=== PATIENT | female | born 1935 | race Caucasian/White ===

== ENCOUNTER 2021-10-30 14:13 | Outpatient (CLI) | payer MEDICARE, SELFPAY ==
[2021-10-30 14:45] LABS: Basophils Percent Auto 0.4 % (0.2-1.2); Eosinophils Percent Auto 0.6 % (0-4.4); Hematocrit 30.3 % (37.0-47.0); Hemoglobin 9.4 g/dL (12.0-15.0); Immature Granulocyte Absolute 0.01 K/mm3 (0.00-0.031); Immature Granulocyte Percent A 0.2 % (0-0.5); Immature Reticulocyte Fraction 4.7 % (3.0-15.9); Lymphocytes Absolute Auto 1.54 K/mm3 (0.9-3.2); Lymphocytes Percent Auto 30.6 % (18.3-44.2); Mean Corpuscular Hemoglobin 31.1 pg (26-34); Mean Corpuscular Volume 100.3 fl (80-100); Mean Platelet Volume 11.1 fl (7.4-10.4); Monocytes Absolute Auto 0.4 K/mm3 (0.1-0.6); Monocytes Percent Auto 7.3 % (2.6-8.5); Neutrophils Absolute Auto 3.1 K/mm3 (1.3-6.7); Neutrophils Percent Auto 60.9 % (45.5-73.1); Platelet Count Result 140 k/mm3 (150-375); Red Blood Count 3.02 M/mm3 (4.2-5.4); Red Cell Distribution Width 13.2 % (11.5-14.5); Reticulocyte Hemoglobin Conten 33.9 pg (28.2-35.7); Reticulocyte Percent 1.01 % (0.7-4.3); Reticulocytes Absolute 0.03 B/L (32.2-175.7)
[2021-10-30 16:03] LABS: Iron 80 ug/dL (37-170)
[2021-10-30 16:06] LABS: Alanine Aminotransferase 22 U/L (6-35); Albumin Level 4.9 g/dL (3.5-5.1); Alkaline Phosphatase 84 U/L (38-126); Anion Gap 10 mmol/L (8-16); Aspartate Amino Transferase 32 U/L (14-36); Bilirubin,Total 0.4 mg/dL (0.2-1.3); Blood Urea Nitrogen 31 mg/dL (7-17); Calcium 9.1 mg/dL (8.4-10.2); Carbon Dioxide 24 mmol/L (22-30); Chloride 104 mmol/L (98-107); Estimated Glomerular Filt Rate 53; Glucose 99 mg/dL (65-110); Lactate Dehydrogenase 649 U/L (313-618); Potassium 4.3 mmol/L (3.4-5.0); Sodium 138 mmol/L (137-145)
[2021-10-30 16:13] LABS: Percent Iron Saturation 24 % (20-50)
== END 2021-10-30 14:14 | disposition home or self-care (01) ==
PROVIDERS: PCP Family Medicine; Visit Provider Internal Medicine Hematology & Oncology
DX: D64.9 Anemia, unspecified (principal)
CPT/HCPCS: 36415; 80053; 82607; 82728; 82746; 83540; 83550; 83615; 85025; 85046

== ENCOUNTER 2023-06-18 14:17 | Outpatient (CLI) | payer MEDICARE, MEDICAID, SELFPAY ==
[2023-06-18 16:37] LABS: Anion Gap 11 mmol/L (8-16); Blood Urea Nitrogen 27 mg/dL (7-17); Calcium 8.9 mg/dL (8.4-10.2); Carbon Dioxide 26 mmol/L (22-30); Chloride 96 mmol/L (98-107); Estimated Glomerular Filt Rate 47; Glucose 106 mg/dL (65-110); Potassium 3.6 mmol/L (3.4-5.0); Sodium 133 mmol/L (137-145)
== END 2023-06-18 14:18 | disposition home or self-care (01) ==
LOC: ANHLAB 14:20
PROVIDERS: Physician Assistant; PCP Family Medicine; Visit Provider Family Medicine
DX: E87.6 Hypokalemia (principal)
CPT/HCPCS: 36415; 80048; 85025; 96372; Q5106

== ENCOUNTER 2023-07-06 15:42 | Inpatient (IN) | payer MEDICARE, MEDICAID, SELFPAY ==
[2023-07-06] VITALS (15 sets, daily range): BP systolic 105–137; BP diastolic 61–76; PULSE 67–111; RESP 14–24; TEMP 36.4–36.8; O2SAT 95–100; BMI 21.4
--- NOTE | ~2023-07-06 | CT_ITS ---
EXAMINATION: CT brain wo con DATE: 07/06/2023 17:49 INDICATION: Confusion. TECHNIQUE: Computed tomography (CT) of the head was performed without intravenous contrast. The mA wa s adjusted according to patient size. Iterative reconstruction technique was employed. The dose-lengt h product was 529.67 mGy-cm. COMPARISON: None FINDINGS: There is an old infarct involving the right basal ganglia. There are scattered areas of low attenuation in the cerebral white matter. There is no intracranial hemorrhage, acute infarction, or abnormal intracranial mass lesion. The ventricles are normal in size. There are likely changes of ocu lar lens replacement surgeries. There is mild mucosal thickening in the paranasal sinuses. The mastoi d air cells are normal. IMPRESSION: 1. 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 2. Moderate nonspecific cerebral white matter disease, which likely represents chronic small vessel i schemic disease. Reviewed, dictated and finalized at location E. R CANE GROWER IMPRESSION: 1. 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 2. Moderate nonspecific cerebral white matter disease, which likely represents chronic small vessel ischemic disease.
--- NOTE | ~2023-07-06 | US_ITS ---
EXAMINATION: US abdomen complete DATE: 07/08/2023 10:54 INDICATION: Pancytopenia. TECHNIQUE: Multiple grayscale and Doppler ultrasound images of the abdomen were obtained. COMPARISON: None FINDINGS: The visualized portions of the head and body of the pancreas are normal. The liver is lyly l without focal lesion. There is normal flow in main portal vein. The gallbladder is absent. The comm on duct is normal and measures 6 mm. Abdominal aorta is normal in caliber. Inferior vena cava is norm al. The spleen is normal in size. Right kidney measures 8.5 x 3.9 x 4.6 cm. Left kidney measures 9.3 x 5.2 x 4.4 cm. There is a 1.4 cm cyst in left kidney. IMPRESSION: 1. Mild atrophy of right kidney. Reviewed, dictated and finalized at location E. FIELD PERSON
--- NOTE | ~2023-07-06 | CT_ITS ---
EXAMINATION: CT lumbar spine wo con DATE: 07/06/2023 17:49 INDICATION: Low back pain. Radiculopathy, worse on the right. TECHNIQUE: Computed tomography (CT) of the lumbar spine was performed without intravenous contrast. A utomated exposure control and iterative reconstruction technique were employed. The dose-length produ ct was 501.63 mGy-cm. COMPARISON: None FINDINGS: There is a small right pleural effusion. Cardiomegaly is noted. There is calcified atherosc lerosis of the aorta and many of the other arteries. There are changes of cholecystectomy. There is a 2.1 cm cyst in right kidney. There is 14 degrees levoscoliosis of lumbar spine. There is 3 mm magaly listhesis of L4 on L5. There is a chronic compression fracture of L3 with 2/5 loss of height. There a re chronic burst fractures of L4 and L5 with 2/5 loss of height. There is mildly decreased disc heigh t at L2-L3, moderately decreased disc height at L3-L4, severely decreased disc height at L3-L4, moder ately decreased disc height at L4-L5, and severely decreased disc height at L5-S1. There are bridging endplate osteophytes from T8 to T11 and at L1-L2, consistent with diffuse idiopathic skeletal hypero stosis (DISH). The following disc levels are specifically discussed: L1-L2: The disc is bulging. There is mild bilateral facet joint osteoarthritis. There is mild right n eural foraminal stenosis. There is mild central canal stenosis. L2-L3: The disc is bulging. There is moderate bilateral facet joint osteoarthritis. There is moderate right and mild left neural foraminal stenosis. There is mild central canal stenosis. L3-L4: The disc is bulging. There is severe bilateral facet joint osteoarthritis. There is moderate b ilateral neural foraminal stenosis. There is mild central canal stenosis. L4-L5: The disc is bulging. There is severe bilateral facet joint osteoarthritis. There is moderate r ight and mild left neural foraminal stenosis. There is moderate central canal stenosis. L5-S1: The disc is bulging. There is mild right and severe left facet joint osteoarthritis. There is mild right and moderate left neural foraminal stenosis. There is mild central canal stenosis. IMPRESSION: 1. Severe lumbar spondylosis. 2. Lumbar levoscoliosis. 3. Small right pleural effusion. Reviewed, dictated and finalized at location E. [employer]
--- NOTE | ~2023-07-06 | XR_ITS ---
EXAMINATION: XR chest 1V DATE: 07/06/2023 17:57 INDICATION: Pneumonia. TECHNIQUE: A single frontal view of the chest was obtained. COMPARISON: Lumbar spine CT 07/06/2023 FINDINGS: There is a small right pleural effusion. A calcified right lung nodule and calcified right hilar lymph nodes are consistent with old granulomatous disease. There is an interstitial pattern in the lungs, consistent mild pulmonary edema. No pneumothorax. Cardiomegaly is noted. Surgical clips in the right upper quadrant are likely from cholecystectomy. IMPRESSION: 1. Mild pulmonary edema. 2. Small right pleural effusion. 3. Cardiomegaly. Reviewed, dictated and finalized at location E. E AWAY DRIVER
--- NOTE | ~2023-07-06 | XR_ITS ---
EXAMINATION: XR hip BI 2V w AP pelvis DATE: 07/06/2023 19:16 INDICATION: Hip pain. TECHNIQUE: An anteroposterior view of the pelvis and 2 views of each hip were obtained. COMPARISON: Pelvis and hip radiograph 12/02/2013 FINDINGS: There is lumbar levoscoliosis and severe spondylosis. No fracture. There is mild osteoarthr itis of the hips. A surgical clips overlies the pelvis. IMPRESSION: 1. Mild osteoarthritis of the hips. Reviewed, dictated and finalized at location E. ACCOUNT MANAGER
--- NOTE | 2023-07-06 17:07 | ED.GENADULT ---
HPI - General Adult General Chief complaint: Back Pain/Injury <Vincent Garcia PA-C - Last Filed: 07/06/23 17:24> Stated complaint: back pain <Vincent Garcia PA-C - Last Filed: 07/06/23 17:24> Time Seen by Provider: 07/06/23 17:07 <Vincent Garcia PA-C - Last Filed: 07/06/23 17:24> Focused HPI: This is an 88-year-old female who presents to the ED with her daughter and chief complaint of low back pain increasing over the last couple of weeks. Seems to be radiating into the bilateral lower extremities. Daughter states that she feels like she cannot take care of her anymore, patient has had a couple of episodes of increased confusion and is being worked up for dementia. Reports patient has been coughing as well. Denies fevers, chills, nausea, vomiting, abdominal pain, chest pain or shortness of breath. GENERAL: Well-appearing, well-nourished, and in no acute distress. HEAD: Normocephalic, atraumatic. CHEST: Clear to auscultation. No respiratory distress. HEART: Regular rate and rhythm. NEURO: Alert and oriented x3. Patient screened in triage and initial orders placed. Additional care and disposition to be based upon diagnostic testing and treatment. <Vincent Garcia PA-C - Last Filed: 07/06/23 17:24> Source: patient and family <Vincent Garcia PA-C - Last Filed: 07/06/23 17:24> Mode of arrival: wheelchair <Vincent Garcia PA-C - Last Filed: 07/06/23 17:24> Limitations: no limitations <Vincent Garcia PA-C - Last Filed: 07/06/23 17:24> History of Present Illness HPI narrative: 88-year-old female present to the emergency department for evaluation of altered mental status, low back pain. Family states that the patient has chronic back pain but it has acutely worsened. They denied any fall or injury. Family states the patient currently lives in her own apartment but they are attempting to get the patient placed into [facility]. <Andrea John MD - Last Filed: 07/06/23 22:02> Related Data Allergies/adverse reactions: Allergies Allergy/AdvReac Type Severity Reaction Status Date / Time No Known Allergies Allergy Mild Verified 07/06/23 17:10 <Vincent Garcia PA-C - Last Filed: 07/06/23 17:24> Review of Systems Review of Systems: All systems reviewed & are unremarkable except as noted in HPI and below <Andrea John MD - Last Filed: 07/06/23 22:02> [facility] Past Medical History Medical History: Medical History Benign essential HTN Gallbladder & bile duct stone, acute cholecystitis and obstruction Hyperlipidemia <Vincent Garcia PA-C - Last Filed: 07/06/23 17:24> Surgical History Surgical History: Surgical History H/O total hysterectomy S/P cholecystectomy <Vincent Garcia PA-C - Last Filed: 07/06/23 17:24> Social History Social History: Social History Social History: Smoking status: Never smoker Second hand tobacco smoke exposure: No Alcohol intake: never Substance use: never Substance use type: does not use Lack of Transportation: No Lack of Food: Never True Current Housing: I Have Housing Concerned About Future Housing: No Difficulty Paying Gas/Electric Bills: No Difficulty Paying for Meds: No Currently Unemployed: YES Education: Decline to Answer Difficulty w/ Childcare or Family Care: No Living arrangements: alone Occupation/Education: retired Gender identity (if verbalized by the patient): Female Sexual Orientation (if Verbalized by the Patient): Straight or Heterosexual <Vincent Garcia PA-C - Last Filed: 07/06/23 17:24> Exam Narrative: APPEARANCE: ill-appearing HEAD: normocephalic, atraumatic. EYES: PERRLA/EOMI, conjunctivae clear. NOSE: Normal no drainage EARS:TMS clear with good light reflex. THROAT: Ph
[2023-07-06 17:48] LABS: Basophils Percent Auto 0.5 % (0.2-1.2); Eosinophils Percent Auto 0.5 % (0-4.4); Hematocrit 30.1 % (37.0-47.0); Hemoglobin 9.6 g/dL (12.0-15.0); Immature Granulocyte Absolute 0.01 K/mm3 (0.00-0.031); Immature Granulocyte Percent A 0.5 % (0-0.5); Immature Platelet Fraction Pct 7.4 % (0.9-11.2); Lymphocytes Percent Auto 18.2 % (18.3-44.2); Mean Corpuscular HGB Conc 31.9 g/dl (32-36); Mean Corpuscular Hemoglobin 32.4 pg (26-34); Mean Corpuscular Volume 101.7 fl (80-100); Mean Platelet Volume 12.5 fl (7.4-10.4); Monocytes Absolute Auto 0.2 K/mm3 (0.1-0.6); Monocytes Percent Auto 10.9 % (2.6-8.5); Neutrophils Absolute Auto 1.5 K/mm3 (1.3-6.7); Neutrophils Percent Auto 69.4 % (45.5-73.1); Platelet Count Result 60 k/mm3 (150-375); Red Blood Count 2.96 M/mm3 (4.2-5.4); White Blood Count 2.2 K/mm3 (4.5-10.0)
[2023-07-06 17:57] LABS: Alanine Aminotransferase 31 U/L (6-35); Albumin Level 3.4 g/dL (3.5-5.1); Alkaline Phosphatase 122 U/L (38-126); Anion Gap 8 mmol/L (8-16); Aspartate Amino Transferase 61 U/L (14-36); Bilirubin,Total 0.8 mg/dL (0.2-1.3); Blood Urea Nitrogen 25 mg/dL (7-17); Calcium 7.9 mg/dL (8.4-10.2); Carbon Dioxide 22 mmol/L (22-30); Chloride 95 mmol/L (98-107); Estimated CRCL calculation 31 ml/min; Estimated Glomerular Filt Rate > 60; Glucose 122 mg/dL (65-110); Potassium 3.6 mmol/L (3.4-5.0); Sodium 125 mmol/L (137-145)
[2023-07-06 18:23] LABS: Influenza A QL RT-PCR Negative (Negative); Influenza B QL RT-PCR Negative (Negative); RSV RNA, RT-PCR Negative (Negative); SARS-CoV-2 RNA PCR Positive (Negative)
[2023-07-06 18:45] LABS: Platelet Estimate Adequate (Adequate)
[2023-07-06 18:46] LABS: Anisocytosis 1+ (NORMAL); Burr Cells 1+ (NORMAL); Ovalocytes 2+ (NORMAL)
[2023-07-06 18:47] LABS: Schistocytes None Seen (NORMAL)
[2023-07-06 19:18] LABS: Appearance Urine Cloudy (Clear); Bacteria Urine 4+ /hpf; Bilirubin Urine Negative (Negative); Blood Urine 1+ (Negative); Color Urine Yellow (Yellow); Glucose Urine UA Negative (Negative); Ketones Urine Negative (Negative); Leukocyte Esterase Ur 2+ LEU/UL (Negative); Nitrate Urine Negative (Negative); Protein Urine 2+ mg/dL (Negative); RBC Urine 0-2 /hpf (0-2); Specific Grav Ur 1.015 (1.001-1.035); Squamous Epithelial Cell Urine None seen /hpf (Few); Urobilinogen Urine 0.2 mg/dL (<2.0); WBC Urine >100 /hpf
[2023-07-06 19:56] LABS: Add Urine Microscopic? YES
--- NOTE | 2023-07-06 20:40 | PM.IMHP ---
H&P: HPI History of Present Illness Date/Time: 07/06/23 20:40 Chief Complaint: Altered mental status Narrative: This is an 88-year-old female with past medical history significant for dementia, atrial fibrillation rate controlled and anticoagulated. Patient to has had altered mental status with behavioral disturbance changes in her sleep pattern, poor per orally intake. Daughter brought her for evaluation to the emergency room. Patient is unable to give any history which has been obtained from daughter who is at bedside and emergency room physician. Preliminary workup was significant for patient tested positive for COVID and urinalysis was significant for numerous WBCs present EXAMINATION: CT brain wo con DATE: 07/06/2023 17:49 INDICATION: Confusion. TECHNIQUE: Computed tomography (CT) of the head was performed without intravenous contrast. The mA was adjusted according to patient size. Iterative reconstruction technique was employed. The dose-length product was 529.67 mGy-cm. COMPARISON: None FINDINGS: There is an old infarct involving the right basal ganglia. There are scattered areas of low attenuation in the cerebral white matter. There is no intracranial hemorrhage, acute infarction, or abnormal intracranial mass lesion. The ventricles are normal in size. There are likely changes of ocular lens replacement surgeries. There is mild mucosal thickening in the paranasal sinuses. The mastoid air cells are normal. IMPRESSION: 1. 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 2. Moderate nonspecific cerebral white matter disease, which likely represents chronic small vessel ischemic disease. EXAMINATION: CT lumbar spine wo con DATE: 07/06/2023 17:49 INDICATION: Low back pain. Radiculopathy, worse on the right. TECHNIQUE: Computed tomography (CT) of the lumbar spine was performed without intravenous contrast. Automated exposure control and iterative reconstruction technique were employed. The dose-length product was 501.63 mGy-cm. COMPARISON: None FINDINGS: There is a small right pleural effusion. Cardiomegaly is noted. There is calcified atherosclerosis of the aorta and many of the other arteries. There are changes of cholecystectomy. There is a 2.1 cm cyst in right kidney. There is 14 degrees levoscoliosis of lumbar spine. There is 3 mm anterolisthesis of L4 on L5. There is a chronic compression fracture of L3 with 2/5 loss of height. There are chronic burst fractures of L4 and L5 with 2/5 loss of height. There is mildly decreased disc height at L2-L3, moderately decreased disc height at L3-L4, severely decreased disc height at L3-L4, moderately decreased disc height at L4-L5, and severely decreased disc height at L5-S1. There are bridging endplate osteophytes from T8 to T11 and at L1-L2, consistent with diffuse idiopathic skeletal hyperostosis (DISH). The following disc levels are specifically discussed: L1-L2: The disc is bulging. There is mild bilateral facet joint osteoarthritis. There is mild right neural foraminal stenosis. There is mild central canal stenosis. L2-L3: The disc is bulging. There is moderate bilateral facet joint osteoarthritis. There is moderate right and mild left neural foraminal stenosis. There is mild central canal stenosis. L3-L4: The disc is bulging. There is severe bilateral facet joint osteoarthritis. There is moderate bilateral neural foraminal stenosis. There is mild central canal stenosis. L4-L5: The disc is bulging. There is severe bilateral facet joint osteoarthritis. There is moderate right and mild left neural foraminal stenosis. There is moderate central canal stenosis. L5-S1: The disc is bulging. There is mild right and severe left facet joint osteoarthritis. There is mild right and moderate left neural foraminal stenosis. There is mild central canal stenosis. IMPRESSION: 1. Severe lumbar spondylosis. 2. Lumbar levoscoliosis. 3. Small right pleural effusion. EXAMINATION: XR chest 1V
--- NOTE | 2023-07-06 22:18 | ADMGEN ---
This patient, Filomena Sams, was admitted to Medical Room 343-01. Patient/family oriented to hospital policies and general routines including ID bracelet, bed and alarms, visiting hours, pain management, procedures, bathroom and other care routines, personal items, smoking policy, room service/diet, and visiting hours. Information on how to activate the Rapid Response Team has been discussed. Patient/Family are encouraged to report perceived risks to care and to ask questions if they do not understand what they are told or what they should do.
[2023-07-07 04:28] VITALS: BP 114/52; PULSE 89; RESP 15; TEMP 37.1; O2SAT 97
[2023-07-07 06:43] LABS: Basophils Percent Auto 0.5 % (0.2-1.2); Hematocrit 30.9 % (37.0-47.0); Lymphocytes Absolute Auto 0.71 K/mm3 (0.9-3.2); Lymphocytes Percent Auto 35.9 % (18.3-44.2); Mean Corpuscular HGB Conc 32.4 g/dl (32-36); Mean Corpuscular Hemoglobin 32.4 pg (26-34); Monocytes Absolute Auto 0.3 K/mm3 (0.1-0.6); Monocytes Percent Auto 13.6 % (2.6-8.5); Platelet Count Result 61 k/mm3 (150-375); Red Blood Count 3.09 M/mm3 (4.2-5.4); Red Cell Distribution Width 18.6 % (11.5-14.5)
[2023-07-07 06:50] LABS: Anion Gap 6 mmol/L (8-16); Blood Urea Nitrogen 22 mg/dL (7-17); Calcium 7.7 mg/dL (8.4-10.2); Carbon Dioxide 25 mmol/L (22-30); Chloride 96 mmol/L (98-107); Estimated CRCL calculation 31 ml/min; Estimated Glomerular Filt Rate > 60; Glucose 84 mg/dL (65-110); Potassium 3.3 mmol/L (3.4-5.0); Sodium 127 mmol/L (137-145)
[2023-07-07] MEDS: POTASSIUM CHLORIDE 20 MEQ PACKET (FOR LIQUID) 40 MEQ PO (08:43)
[2023-07-07] MEDS: SERTRALINE HCL 25 MG TABLET PO (08:44)
[2023-07-07] MEDS: APIXABAN 2.5 MG TABLET PO ×2 (08:44→21:05)
[2023-07-07] MEDS: ATORVASTATIN 20 MG TABLET PO (08:44)
[2023-07-07] MEDS: dilTIAZem HCL CD 120 MG CAP.24HR PO (08:44)
[2023-07-07] MEDS: FERROUS SULFATE 325 MG TABLET DR PO (08:44)
[2023-07-07] MEDS: ACETAMINOPHEN 500 MG TABLET 1000 MG PO ×2 (08:44→21:05)
[2023-07-07 08:51] LABS: Platelet Estimate Decreased (Adequate); Schistocytes Rare (NORMAL)
--- NOTE | 2023-07-07 13:10 | PM.IMPN ---
Progress Note: A&P Assessment and Plan (1) AMS (altered mental status): Code(s): R41.82 - Altered mental status, unspecified Status: Acute Assessment and Plan: CT of the head no acute intracranial process Supportive care Likely due to acute infection (2) Acute UTI: Code(s): N39.0 - Urinary tract infection, site not specified Status: Acute Assessment and Plan: urine suspicious for UTI. Rocephin initiated. Urine culture pending. Adjust antibiotic therapy to culture results. (3) COVID: Code(s): U07.1 - COVID-19 Status: Acute Assessment and Plan: Supportive care Not requiring oxygen supplementation at this time. (4) Aortic stenosis: Code(s): I35.0 - Nonrheumatic aortic (valve) stenosis Status: Acute Assessment and Plan: Patient is on diltiazem Continue to monitor (5) Mitral stenosis: Code(s): I05.0 - Rheumatic mitral stenosis Status: Acute Assessment and Plan: Continue to monitor (6) JR (generalized anxiety disorder): Code(s): F41.1 - Generalized anxiety disorder Status: Acute Assessment and Plan: Continue sertraline (7) CKD (chronic kidney disease) stage 3, GFR 30-59 ml/min: Code(s): N18.30 - Chronic kidney disease, stage 3 unspecified Status: Acute Assessment and Plan: BUN and creatinine at patient's baseline (8) Hyponatremia: Code(s): E87.1 - Hypo-osmolality and hyponatremia Status: Acute Assessment and Plan: Multifactorial as patient is on diuretics at home noted chloride to be low as well Received fluids in emergency room Continue to monitor Subjective Date/time seen: 07/07/23 13:10 Interval history: Patient states that she is feeling well today. She denies any cough, shortness of breath or chest pain. She is incontinent but denies any urinary burning or irritation. Her urine cultures are pending. Once urine cultures come back the plan is to hopefully discharge patient to SNF. Exam Narrative: GENERAL: Comfortable, no acute distress HENMT: moist mucous membranes EYES: EOM intact b/l NECK: no lymphadenopathy RESPIRATORY: clear to auscultation CARDIO: RRR GI: soft, nontender, bowel sounds present SKIN: no rashes EXTREMITIES: no edema, redness or tenderness Objective Data Vital Signs Vital Signs: Vital Signs - 24 hr 01/16/24 15:56 07/06/23 17:09 07/06/23 21:57 Temperature 97.5 F L Pulse Rate 111 H 67 86 Respiratory Rate 20 18 20 Blood Pressure 105/72 137/62 106/76 Pulse Oximetry 99 99 96 Oxygen Delivery Room Air 07/06/23 20:04 07/06/23 20:05 07/06/23 20:15 Temperature Pulse Rate 96 94 86 Respiratory Rate 19 23 H 17 Blood Pressure 136/73 122/74 Pulse Oximetry 100 97 98 Oxygen Delivery 07/06/23 20:16 07/06/23 20:34 07/06/23 20:45 Temperature Pulse Rate 90 96 94 Respiratory Rate 16 23 H 19 Blood Pressure Pulse Oximetry 98 100 100 Oxygen Delivery 07/06/23 20:46 07/06/23 21:14 07/06/23 21:15 Temperature Pulse Rate 85 91 78 Respiratory Rate 18 14 17 Blood Pressure 110/74 Pulse Oximetry 100 Oxygen Delivery 07/06/23 21:41 07/06/23 21:45 07/06/23 22:20 Temperature 98.2 F Pulse Rate 87 88 81 Respiratory Rate 24 H 18 18 Blood Pressure 116/61 Pulse Oximetry 95 Oxygen Delivery 07/07/23 04:28 07/07/23 08:50 Temperature 98.8 F Pulse Rate 89 Respiratory Rate 15 Blood Pressure 114/52 L Pulse Oximetry 97 Oxygen Delivery Room Air Intake/Output Intake/Output: Intake & Output 07/04/23 07/05/23 07/06/23 07/07/23 23:59 23:59 23:59 23:59 Intake Total 50 540 Output Total 250 250 Balance -200 290 Meds/Results Medications: Active Medications Generic Name Dose Route Start Last Admin Trade Name Chanceq PRN Reason Stop Dose Admin Acetaminophen 1,000 mg 07/07/23 09:00 07/07/23 08:44 Acetaminophen 500 Mg Tablet
[2023-07-07 16:00] VITALS: BP 114/66; PULSE 70; RESP 16; TEMP 36.2; O2SAT 100
[2023-07-07 19:40] VITALS: BP 91/62; PULSE 66; RESP 18; TEMP 36.6; O2SAT 98
[2023-07-08 05:52] VITALS: BP 97/49; PULSE 83; RESP 16; TEMP 36.6; O2SAT 96
[2023-07-08 06:14] LABS: Hematocrit 30.8 % (37.0-47.0); Hemoglobin 9.6 g/dL (12.0-15.0); Immature Platelet Fraction Pct 7.6 % (0.9-11.2); Mean Corpuscular HGB Conc 31.2 g/dl (32-36); Mean Corpuscular Hemoglobin 31.2 pg (26-34); Mean Platelet Volume 12.8 fl (7.4-10.4); Platelet Count Result 66 k/mm3 (150-375); Red Blood Count 3.08 M/mm3 (4.2-5.4); Red Cell Distribution Width 18.7 % (11.5-14.5)
[2023-07-08 06:24] LABS: Alanine Aminotransferase 26 U/L (6-35); Albumin Level 3.1 g/dL (3.5-5.1); Alkaline Phosphatase 117 U/L (38-126); Anion Gap 6 mmol/L (8-16); Aspartate Amino Transferase 61 U/L (14-36); Bilirubin,Total 0.6 mg/dL (0.2-1.3); Blood Urea Nitrogen 22 mg/dL (7-17); Calcium 7.8 mg/dL (8.4-10.2); Carbon Dioxide 23 mmol/L (22-30); Chloride 98 mmol/L (98-107); Estimated CRCL calculation 28 ml/min; Estimated Glomerular Filt Rate 59; Glucose 90 mg/dL (65-110); Potassium 3.8 mmol/L (3.4-5.0); Sodium 127 mmol/L (137-145)
[2023-07-08 06:42] LABS: White Blood Count 1.8 K/mm3 (4.5-10.0)
[2023-07-08 08:12] LABS: Basophils Percent Auto 0.5 % (0.2-1.2); Eosinophils Percent Auto 0.5 % (0-4.4); Hematocrit 30.4 % (37.0-47.0); Hemoglobin 9.7 g/dL (12.0-15.0); Immature Granulocyte Absolute 0.02 K/mm3 (0.00-0.031); Immature Granulocyte Percent A 1.1 % (0-0.5); Immature Platelet Fraction Pct 7.9 % (0.9-11.2); Lymphocytes Absolute Auto 0.93 K/mm3 (0.9-3.2); Mean Corpuscular HGB Conc 31.9 g/dl (32-36); Mean Corpuscular Hemoglobin 31.9 pg (26-34); Mean Platelet Volume 12.1 fl (7.4-10.4); Monocytes Absolute Auto 0.2 K/mm3 (0.1-0.6); Monocytes Percent Auto 12.9 % (2.6-8.5); Neutrophils Absolute Auto 0.7 K/mm3 (1.3-6.7); Nucleated Red Blood Cells Perc 1.1 % (0.0-0.2); Platelet Count Result 66 k/mm3 (150-375); Red Blood Count 3.04 M/mm3 (4.2-5.4); Red Cell Distribution Width 18.8 % (11.5-14.5)
[2023-07-08] MEDS: dilTIAZem HCL CD 120 MG CAP.24HR PO (08:27)
[2023-07-08] MEDS: APIXABAN 2.5 MG TABLET PO (08:27)
[2023-07-08] MEDS: ATORVASTATIN 20 MG TABLET PO (08:27)
[2023-07-08] MEDS: FERROUS SULFATE 325 MG TABLET DR PO (08:27)
[2023-07-08] MEDS: ACETAMINOPHEN 500 MG TABLET 1000 MG PO (08:27)
[2023-07-08] MEDS: SERTRALINE HCL 25 MG TABLET PO (08:28)
[2023-07-08 08:41] LABS: White Blood Count 1.9 K/mm3 (4.5-10.0)
[2023-07-08] MEDS: SODIUM CHLORIDE 0.9% IV 500 ML 100 ML IV CONT (08:41)
[2023-07-08 08:42] LABS: Anisocytosis 1+ (NORMAL); Platelet Estimate Decreased (Adequate); Poikilocytosis 1+ (NORMAL)
[2023-07-08 08:43] LABS: Ovalocytes 1+ (NORMAL); Schistocytes Rare (NORMAL)
[2023-07-08 08:59] LABS: Iron 85 ug/dL (37-170)
[2023-07-08 09:08] LABS: Percent Iron Saturation 30 % (20-50)
[2023-07-08] MEDS: SODIUM CHLORIDE 1 GM TABLET PO (09:57)
[2023-07-08 10:25] LABS: Folic Acid 5.5 ng/mL (2.76->20); Vitamin B12 > 1000.0 pg/mL (239-931)
--- NOTE | 2023-07-08 11:56 | PDONCCN ---
HPI - Date of Consult Date/Time: 07/08/23 18:21 <Jesus Alberto Garcia - 07/08/23 18:24> 07/08/23 11:56 <Heidi Ramos - 07/08/23 12:00> Requesting Physician: Mone Horvath MD <Jesus Alberto Garcia - 07/08/23 18:24> Mone Horvath MD <Heidi Ramos - 07/08/23 12:00> Primary Care Provider: Bernie Eli MD <Jesus Alberto Garcia - 07/08/23 18:24> Bernie Eli MD <Heidi Ramos - 07/08/23 12:00> - Consult Narrative Reason for consult: Panctyopenia <Heidi Ramos - 07/08/23 12:00> Narrative: Filomena Sams is a 88 year old female <Jesus Alberto Garcia - 07/08/23 18:24> Filomena Sams is a 88 year old female with a past medical history of dementia, Afib controlled, and HLD. She was brought to the ED for worsening AMS and was found to be COVID + and have a urinalysis suspicious for a UTI. Filomena has been seen in our office for anemia of chronic renal failure and has been receiving monthly Procrit injections. She also has a B12 deficiency and is on oral supplementation. She was last seen in office 05/21/23 and labs were stable with a Hgb of 10.6, WBC 4.1, Plt 110, Creatinine 1.2. Upon exam, patient is unable to give much information and history due to her dementia. She is able to tell me that she is in the hospital and the month is June. <Heidi Ramos - 07/08/23 12:00> Review of Systems - Review of Systems unobtainable due to mental status <Heidi Ramos - 07/08/23 12:01> [facility] Medical History: Medical History (Last Reviewed 06/18/23 @ 13:20 by Traci Gayle MA) Benign essential HTN Gallbladder & bile duct stone, acute cholecystitis and obstruction Hyperlipidemia <Jesus Alberto Garcia - 07/08/23 18:24> Medical History (Last Reviewed 06/18/23 @ 13:20 by Traci Gayle MA) Benign essential HTN Gallbladder & bile duct stone, acute cholecystitis and obstruction Hyperlipidemia <Moises Ramosne - 07/08/23 12:00> Surgical History: Surgical History (Last Reviewed 06/18/23 @ 13:20 by Traci Gayle MA) H/O total hysterectomy S/P cholecystectomy <JoseJesus AlbertoVijaya - 07/08/23 18:24> Surgical History (Last Reviewed 06/18/23 @ 13:20 by Traci Gayle MA) H/O total hysterectomy S/P cholecystectomy <RandolphHeidi greenfield 07/08/23 12:00> Family History: Family History (Last Updated 07/06/23 @ 22:32 by Erin Mas RN) Sibling Lung cancer Breast cancer Emphysema lung <JoseJesus AlbertoVijaya - 07/08/23 18:24> Family History (Last Updated 07/06/23 @ 22:32 by Erin Mas RN) Sibling Lung cancer Breast cancer Emphysema lung <Randolphjean pierreHeidi 07/08/23 12:00> - Social History Social History: Social History (Last Reviewed 06/18/23 @ 13:20 by Traci Gayle MA) Gender Identity: Gender identity (if verbalized by the patient): Female Sexual Orientation: Sexual Orientation (if Verbalized by the Patient): Straight or Heterosexual Alcohol Use: Alcohol intake: never Substance Use: Substance use: never Substance use type: does not use Others: Spiritual care concerns: No Living Arrangements: Living arrangements: alone Oppucation/Education: Occupation/Education: retired Smoking Status: Smoking status: Never smoker Second hand tobacco smoke exposure: No Social Determinants of Health: Do You Feel Safe in your Home?: Yes Has the Lack of Transportation Kept You From Medical Appointments or From Getting Medications?: No Within the Past 12 Months, Were You Worried Whether Your Food Would Run Out Before You Got Money to Buy More?: Never True What is Your Housing Situation Today?: I Have Housing Are You Worried That in the Next 2 Months, You May Not Have Your Own Housing to Live In?: No Do You Have Trouble Paying Your Heating Or Elect
--- NOTE | 2023-07-08 12:26 | PM.DS ---
DS: Admitting Diagnosis Discharge Date 07/08/23 Admitting Diagnosis UTI, COVID DS: Discharge Diagnosis Discharge Diagnosis (1) AMS (altered mental status): Code(s): R41.82 - Altered mental status, unspecified Status: Acute (2) Acute UTI: Code(s): N39.0 - Urinary tract infection, site not specified Status: Acute (3) COVID: Code(s): U07.1 - COVID-19 Status: Acute (4) Aortic stenosis: Code(s): I35.0 - Nonrheumatic aortic (valve) stenosis Status: Acute (5) Mitral stenosis: Code(s): I05.0 - Rheumatic mitral stenosis Status: Acute (6) JR (generalized anxiety disorder): Code(s): F41.1 - Generalized anxiety disorder Status: Acute (7) CKD (chronic kidney disease) stage 3, GFR 30-59 ml/min: Code(s): N18.30 - Chronic kidney disease, stage 3 unspecified Status: Acute (8) Hyponatremia: Code(s): E87.1 - Hypo-osmolality and hyponatremia Status: Acute DS: Summary Hospital Course Hospital Course: This is an 88-year-old female with a past medical history of dementia, AFib rate controlled, anemia and hyperlipidemia that presented to the ED due to her mental status and Poor oral intake. She was found to be COVID positive but did not require any increased oxygen demands. Her urine was suspicious for infection. She was started on Rocephin. Patient's urine culture came back positive for E coli sensitive to Augmentin. She was transitioned to p.o. Augmentin. She does have some pancytopenia but sees Oncology as an outpatient. Recommended she continue her follow-up appointment. Her labs and vital signs are stable and she is medically cleared for discharge at this time. Time Spent with Patient Time attestation: Total time spent providing and/or coordinating discharge services: Exam Narrative: GENERAL: Comfortable, no acute distress HENMT: moist mucous membranes EYES: EOM intact b/l NECK: no lymphadenopathy RESPIRATORY: clear to auscultation CARDIO: RRR GI: soft, nontender, bowel sounds present SKIN: no rashes EXTREMITIES: no edema, redness or tenderness DS: Data Data Completed and Pending Pending studies at discharge: Pending at discharge 07/08/23 11:54 Surgical [PTH] Routine Labs on day of discharge: Labs from last 24 hours 07/08/23 07/08/23 07/08/23 05:47 05:47 05:47 WBC RBC Hgb Hct MCV MCH MCHC RDW Plt Count 66 L MPV 12.1 H 12.8 H Immature Gran % (Auto) 1.1 H Neut % (Auto) 35.0 L Lymph % (Auto) 50.0 H [place] % (Auto) 12.9 H Eos % (Auto) 0.5 Baso % (Auto) 0.5 Lymph # (Auto) 0.93 [place] # (Auto) 0.2 Eos # (Auto) 0.0 Baso # (Auto) 0.0 Abs Immat Gran (auto) 0.02 Absolute Neuts (auto) 0.7 L Absolute Nucleated RBC 0.0 Nucleated RBC % 1.1 H Platelet Estimate Decreased % Immature Plt Fraction 7.9 7.6 Poikilocytosis 1+ Anisocytosis 1+ Ovalocytes 1+ Schistocytes Rare Sodium 127 L Potassium 3.8 Chloride 98 Carbon Dioxide 23 Anion Gap 6 L BUN 22 H Creatinine 0.90 Estim Creat Clear Calc 28 Estimated GFR 59 Glucose 90 Calcium 7.8 L Iron 85 TIBC 283 % Saturation 30 Helene Transferrin Receptr Pending Ferritin 357.00 H Total Bilirubin 0.6 AST 61 H ALT 26 Alkaline Phosphatase 117 Total Protein 6.0 L Albumin 3.1 L Vitamin B12 > 1000.0 H Methylmalonic Acid Pending Folate 5.5 EMAON Screen Pending 07/08/23 07/08/23 07/08/23 05:47 05:47 05:47 WBC RBC Hgb Hct MCV MCH 31.9 MCHC 31.9 L 31.2 L RDW 18.8 H 18.7 H Plt Count 66 L MPV Immature Gran % (Auto) Neut % (Auto) Lymph % (Auto) [place] % (Auto) Eos % (Auto) Baso % (Auto) Lymph # (Auto) [place] # (Auto) Eos # (Auto) Baso # (Auto) Abs Immat Gran (auto) Absolute Neuts (auto) Absolute Nucleated RBC Nuclea
--- NOTE | 2023-07-08 13:02 | P.CDI_ITS ---
CDI Query Clarification Request Documentation in the medical record indicates that this patient has been diagnosed as having the symptom of ALTERED MENTAL STATUS. Additional findings also documented in the medical record: * Infection : UTI * Hyponatremia * COVID-19 * Urine Culture 07/06/23 grew > 100,000 Escherichia coli * Patient received Rocephin 1 GM Q 24hrs changed to Augmentin PO Q 12hrs Based on your medical judgement , can you further clarify in the progress notes, if know, if these findings associated with altered mental status are due to a definite or suspected underlying neurological cause such as: * Metabolic Encephalopathy * Toxic Encephalopathy * Altered Mental status without encephalopathy * Other condition (Please specify) * None of the above/ Not applicable/ Unknown <Codie Diana RN - Last Filed: 07/08/23 13:15> Clarified Diagnosis Clarified Diagnosis: Metabolic encephalopathy <Clarissa Rock PA-C - Last Filed: 07/08/23 14:16>
[2023-07-12 11:35] LABS: Methylmalonic Acid 163 nmol/L (87-318)
[2023-07-13 13:59] LABS: Anti Nuclear Antibody Titer 1:40 (Negative)
[2023-07-17 11:56] LABS: Soluble Transferrin Receptor 1.19 mg/L (0.76-1.76)
== END 2023-07-08 14:20 | DRG 689 ==
LOC: ANHED 18:03 → ANH3MED 21:40
PROVIDERS: Internal Medicine Critical Care Medicine; Nurse Practitioner Family; Physician Assistant; Admitting Provider Internal Medicine; Emergency Provider Emergency Medicine; PCP Family Medicine; Visit Provider Internal Medicine
DX: N39.0 Urinary tract infection, site not specified (principal); G93.41 Metabolic encephalopathy; U07.1 COVID-19; E87.1 Hypo-osmolality and hyponatremia; D61.818 Other pancytopenia; B96.20 Unspecified Escherichia coli [E. coli] as the cause of diseases classified elsewhere; D63.1 Anemia in chronic kidney disease; E53.8 Deficiency of other specified B group vitamins; E78.5 Hyperlipidemia, unspecified; F41.1 Generalized anxiety disorder; F03.90 Unspecified dementia, unspecified severity, without behavioral disturbance, psychotic disturbance, mood disturbance, and anxiety; I06.0 Rheumatic aortic stenosis; I12.9 Hypertensive chronic kidney disease with stage 1 through stage 4 chronic kidney disease, or unspecified chronic kidney disease; I48.91 Unspecified atrial fibrillation; N18.30 Chronic kidney disease, stage 3 unspecified; Z90.710 Acquired absence of both cervix and uterus; Z90.49 Acquired absence of other specified parts of digestive tract; Z79.01 Long term (current) use of anticoagulants
CPT/HCPCS: 36415; 70450; 71045; 72131; 73521; 76700; 80048; 80053; 81001; 82607; 82728; 82746; 83540; 83550; 83921; 84238; 85025; 85027; 85055; 86038; 86039; 87077; 87086; 87088; 87186; 87637; 96365; 97161; 97165; 99285; A9270; G0378; J0696; J7040

== ENCOUNTER 2023-08-07 11:48 | Observation (INO) | payer MEDICARE, MEDICAID, SELFPAY ==
[2023-08-07] VITALS (20 sets, daily range): BP systolic 95–143; BP diastolic 58–96; PULSE 60–147; RESP 18–32; TEMP 36.3–36.6; O2SAT 94–98; BMI 20.1
--- NOTE | ~2023-08-07 | CT_ITS ---
EXAMINATION: CTA chest PE protocol DATE: 08/07/2023 15:18 INDICATION: covid, tachycardia, concern PE TECHNIQUE: Computed tomography angiography (CTA) of the chest was performed with 100 mL Omnipaque-350 intravenous contrast timed to evaluate the pulmonary arteries. Coronal maximum intensity projection 3D-reconstructions were created by the technologist. The dose-length product (DLP) was 263.99 mGy-cm. Automated exposure control and iterative reconstruction technique were employed. COMPARISON: X-ray chest, same date. FINDINGS: Lung parenchyma and airways: Septal thickening. Patchy groundglass opacities most notably in the bila teral upper lobes. Minimal dependent atelectasis. Calcified right middle lobe granuloma/hamartoma. Pleura: Moderate right and small left pleural fluid collections. Thoracic inlet, axillae and chest wall: Considerable venous reflux in the left upper extremity and ch est. Severe body wall edema. Thoracic aorta: Heavy aortic calcification. No aneurysm. Mediastinum: Dilated central pulmonary arteries, as can be seen with pulmonary arterial hypertension. Heart and pericardium: Marked cardiomegaly with pronounced biatrial enlargement. Lesser degree of rig ht ventricular enlargement. Septal flattening. Mitral annulus calcification. Coronary artery calcifications: Moderate. Upper abdomen: Considerable IVC and hepatic vein reflux. Bones: No acute osseous finding. Pulmonary arteries: Study quality: Adequate. No pulmonary emboli detected. IMPRESSION: No CT evidence of acute pulmonary embolus. Pulmonary edema. Moderate right and small left pleural effusions. Marked cardiomegaly, with additional signs that can be seen with right heart failure. Severe body wall edema. Reviewed, dictated and finalized at location K. O LAB MANAGER IMPRESSION: No CT evidence of acute pulmonary embolus. Pulmonary edema. Moderate right and small left pleural effusions. Marked cardiomegaly, with additional signs that can be seen with right heart fa ilure. Severe body wall edema.
--- NOTE | ~2023-08-07 | XR_ITS ---
EXAMINATION: XR elbow RT min 3V DATE: 08/07/2023 12:48 INDICATION: Right elbow injury post fall TECHNIQUE: Anteroposterior, two oblique and lateral views of the right elbow were obtained. COMPARISON: None. FINDINGS: Alignment is normal. Soft tissue swelling about the medial epicondyle with linear lucencies in the so ft tissues extending across the medial epicondyle. No fracture. Joint spaces are normal. No right elb ow joint effusion. Scattered vascular calcifications at the forearm and distal upper arm. IMPRESSION: 1. No right elbow joint effusion or acute osseous abnormality. Reviewed, dictated and finalized at location A. [facility]
--- NOTE | ~2023-08-07 | CT_ITS ---
EXAMINATION: CT cervical spine wo con DATE: 08/07/2023 12:43 INDICATION: Patient with dementia found down post unwitnessed fall TECHNIQUE: Computed tomography (CT) of the cervical spine was performed without intravenous contrast. Automated exposure control and iterative reconstruction technique were employed. The dose-length pro duct was 488.14 mGy-cm. COMPARISON: None FINDINGS: Severe atlantoaxial osteoarthritis. 3 mm anterolisthesis C3 on C4. Vertebral body heights are normal. No fracture. Moderate disc height loss at C5-C6, C6-C7 and C7-T1. Mild disc height loss at C2-C3 and C3-C4 and mild to moderate disc height loss at C4-C5. Disc bulge at C3-C4 and posterior disc ossifie d complexes at C5-C6 and C6-7 resulting mild central canal stenosis at each of these levels. There is multilevel severe bilateral cervical facet and uncovertebral osteoarthritis. Solid osseous fusion ac ross the left C7-T1 facet joints. Moderate neural foraminal stenosis on the left at C3-C4, C5-C6 and C6-C7 and on the right at C4-C5, C5-C6 and C6-C7. Mild neural from stenosis remaining cervical neural foramina. Prominent atherosclerotic calcifications at the great vessels arising from the aortic arch and the bilateral carotid bulbs which could be hemodynamically significant. Groundglass opacities an d smooth septal line thickening at the bilateral apices consistent with moderate pulmonary edema. The re are also a small posterior layering pleural effusions along the bilateral upper lobes. IMPRESSION: 1. Moderate cervical spondylosis with no acute osseous abnormality. 2. Moderate pulmonary edema and at least small bilateral pleural effusions at the visualized apices o f lungs. 3. Prominent atherosclerotic calcific lesions which may be hemodynamically significant at the great v essels arising from the aortic arch and at the bilateral carotid bulbs. Reviewed, dictated and finalized at location A. HEAD IMPRESSION: 1. Moderate cervical spondylosis with no acute osseous abnormality. 2. Moderate pulmonary edema and at least small bilateral pleural effusions at t he visualized apices of lungs. 3. Prominent atherosclerotic calcific lesions which may be hemodynamically sign ificant at the great vessels arising from the aortic arch and at the bilateral carotid bulbs.
--- NOTE | ~2023-08-07 | CT_ITS ---
EXAMINATION: CT brain wo con DATE: 08/07/2023 12:43 INDICATION: Anticoagulated patient with dementia found down post unwitnessed fall TECHNIQUE: Computed tomography (CT) of the head was performed without intravenous contrast. Sagittal and coronal reconstructions were performed. The mA was adjusted according to patient size. Iterative reconstruction technique was employed. The dose-length product was 605.33 mGy-cm. COMPARISON: head CT dated 07/06/2023 FINDINGS: No fracture. No acute intracranial hemorrhage, acute infarction or abnormal extra axial fluid collect ion. There is moderate scattered white matter hypoattenuation consistent with chronic small vessel is chemic disease. Symmetric prominence of the sulci consistent with moderate age-appropriate diffuse ce rebral volume loss. Ventricles are normal and symmetric. No mass/mass effect. Changes of bilateral i ntraocular lens replacement. The orbits, paranasal sinuses and mastoid air cells are normal. Intracra nial calcified cerebral atherosclerosis is noted. IMPRESSION: 1. No fracture or acute intracranial process. 2. Age-related changes including moderate diffuse volume loss and moderate scattered white matter hyp oattenuation consistent with chronic small vessel ischemic disease. Reviewed, dictated and finalized at location A. RHOUSE TENDER IMPRESSION: 1. No fracture or acute intracranial process. 2. Age-related changes including moderate diffuse volume loss and moderate scat tered white matter hypoattenuation consistent with chronic small vessel ischemi c disease.
--- NOTE | 2023-08-07 12:09 | ED.FALL ---
HPI - Fall General Chief Complaint: Fall Stated Complaint: fall Time Seen by Provider: 08/07/23 11:49 History of Present Illness HPI Narrative: 88-year-old female presented to the emergency department for evaluation after having on fall. Patient does have history of Alzheimer's and does reside in a memory care unit. Patient was found on the ground. Patient is normally A and O x 1. Related Data Home Medications Medication Instructions Recorded Confirmed acetaminophen 500 mg tablet 1,000 mg PO BID 07/06/23 08/07/23 apixaban 2.5 mg tablet (Eliquis) 2.5 mg PO BID 07/06/23 07/14/23 atorvastatin 20 mg tablet 20 mg PO DAILY 07/06/23 07/14/23 cyanocobalamin (vitamin B-12) 25 25 mcg PO DAILY 07/06/23 07/14/23 mcg tablet diltiazem HCl 120 mg capsule,24 120 mg PO DAILY 07/06/23 07/14/23 hr,extended release (Tiadylt ER) ferrous sulfate 325 mg (65 mg 65 mg PO DAILY 07/06/23 07/14/23 iron) tablet (Iron (ferrous sulfate)) furosemide 20 mg tablet 20 mg PO DAILY 07/06/23 07/14/23 Allergies Allergy/AdvReac Type Severity Reaction Status Date / Time No Known Allergies Allergy Mild Verified 07/06/23 23:23 Review of Systems Review of Systems: All systems reviewed & are unremarkable except as noted in HPI and below PMFSH Past Medical History Medical History (Updated 08/07/23 @ 21:33 by Shelli Katz APRN) Alzheimer disease Anemia, chronic renal failure Aortic stenosis Atrial fibrillation On anticoagulation Benign essential HTN JR (generalized anxiety disorder) Heart failure due to valvular disease Hyperlipidemia Mitral stenosis Pancytopenia PFO (patent foramen ovale) Surgical History Surgical History H/O total hysterectomy S/P cholecystectomy Family History Family History Sibling Lung cancer Breast cancer Emphysema lung Social History Social History Social History: Smoking status: Never smoker Second hand tobacco smoke exposure: No Alcohol intake: never Substance use: never Substance use type: does not use Do You Feel Safe in your Home?: Yes Lack of Transportation: No Lack of Food: Never True Current Housing: I Have Housing Concerned About Future Housing: No Difficulty Paying Gas/Electric Bills: No Difficulty Paying for Meds: No Currently Unemployed: No Education: High School Diploma/GED Difficulty w/ Childcare or Family Care: No Living arrangements: alone Occupation/Education: retired Gender identity (if verbalized by the patient): Female Sexual Orientation (if Verbalized by the Patient): Straight or Heterosexual Spiritual care concerns: No Exam Narrative: APPEARANCE: ill-appearing HEAD: normocephalic, atraumatic. EYES: PERRLA/EOMI, conjunctivae clear. NOSE: Normal no drainage EARS:TMS clear with good light reflex. THROAT: Pharynx clear, no exudate. NECK: Supple. No adenopathy, no masses. RESPIRATORY: Airway patent, respirations nonlabored. Clear to auscultation bilaterally, no rales, rhonchi, wheezing. CARDIOVASCULAR: AFib with RVR ABDOMINAL: Soft, nontender, nondistended, normal bowel sounds MUSCULOSKELETAL: Moves all extremities. Strength/ROM intact, No edema, No calf tenderness. NEURO: Alert. Cranial nerves II through XII intact. grossly intact Course Course Emergency Course: 88-year-old female presents to the ED for evaluation after a ground level fall and being found ground. Patient was found to be in AFib with RVR. She was initially treated with IV metoprolol and then transition to Cardizem. Patient is afebrile but does have a leukocytosis of 11.6 and hemoglobin of 9.5. Patient does have an elevated BNP almost 10,000. UA shows no evidence of urinary tract infection. patient had a contusion of her right elbow but x-rays were negative. Head CT was
--- NOTE | 2023-08-07 12:12 | ECG_ITS ---
Measurements Intervals [place] Rate: 147 P: -6 [place]: 127 QRS: -11 QRSD: 98 T: 151 QT: 302 QTc: 473 Interpretive Statements ATRIAL TACHYCARDIA SUSPECT ATYPICAL ATRIAL FLUTTER NONSPECIFIC ST AND T-WAVE ABNORMALITY PREVIOUS ANTEROSEPTAL MS ABNORMAL ECG NO PREVIOUS ECG AVAILABLE FOR COMPARISON Electronically Signed On 08-07-2023 19:15:24 FINISHED CARPET INSPECTOR by Fito Yu M.D.
[2023-08-07 12:37] LABS: Basophils Percent Auto 0.3 % (0.2-1.2); Eosinophils Percent Auto 0.2 % (0-4.4); Hematocrit 30.6 % (37.0-47.0); Hemoglobin 9.5 g/dL (12.0-15.0); Immature Granulocyte Percent A 0.9 % (0-0.5); Lymphocytes Absolute Auto 1.11 K/mm3 (0.9-3.2); Lymphocytes Percent Auto 9.6 % (18.3-44.2); Mean Corpuscular Hemoglobin 32.6 pg (26-34); Mean Corpuscular Volume 105.2 fl (80-100); Mean Platelet Volume 10.9 fl (7.4-10.4); Monocytes Percent Auto 8.5 % (2.6-8.5); Neutrophils Absolute Auto 9.3 K/mm3 (1.3-6.7); Neutrophils Percent Auto 80.5 % (45.5-73.1); Platelet Count Result 114 k/mm3 (150-375); Red Blood Count 2.91 M/mm3 (4.2-5.4); Red Cell Distribution Width 17.2 % (11.5-14.5); White Blood Count 11.6 K/mm3 (4.5-10.0)
[2023-08-07 12:47] LABS: INR 1.4; Prothrombin Time 17.7 Seconds (11.1-14.7)
[2023-08-07 12:48] LABS: Partial Thromboplastin Time 36.1 SECONDS (22.3-36.8)
[2023-08-07] MEDS: METOPROLOL TARTRATE INJ 5 MG/5 ML VIAL IV PUSH (13:06)
[2023-08-07 13:11] LABS: Anisocytosis 1+ (NORMAL); Macrocytosis 1+ (NORMAL); Ovalocytes 1+ (NORMAL); Platelet Estimate Decreased (Adequate); Schistocytes None Seen (NORMAL)
[2023-08-07 13:25] LABS: Alanine Aminotransferase 35 U/L (6-35); Albumin Level 4.1 g/dL (3.5-5.1); Alkaline Phosphatase 118 U/L (38-126); Anion Gap 12 mmol/L (8-16); Aspartate Amino Transferase 42 U/L (14-36); Bilirubin,Total 1.4 mg/dL (0.2-1.3); Blood Urea Nitrogen 30 mg/dL (7-17); Calcium 9.3 mg/dL (8.4-10.2); Carbon Dioxide 18 mmol/L (22-30); Chloride 107 mmol/L (98-107); Creatine Kinase 100 U/L (30-135); Estimated Glomerular Filt Rate 59; Glucose 107 mg/dL (65-110); Potassium 4.4 mmol/L (3.4-5.0); Sodium 137 mmol/L (137-145)
--- NOTE | 2023-08-07 13:26 | ECG_ITS ---
Measurements Intervals [place] Rate: 101 P: [place]: 0 QRS: -3 QRSD: 84 T: 159 QT: 349 QTc: 454 Interpretive Statements ATRIAL FIBRILLATION ANTEROSEPTAL MYOCARDIAL INFARCTION , OF INDETERMINATE AGE [40+ ms Q WAVE IN V1-V4]+ ABNORMAL ECG COMPARED TO ECG 08/07/2023 12:57:50 HEART RATE IS MORE CONTROLLED AND THE ATRIAL RHYTHM APPEARS TO BE ATRIAL FIB Electronically Signed On 08-07-2023 19:16:41 VENDING MANAGER by Fito Yu M.D.
[2023-08-07 13:44] LABS: Appearance Urine Clear (Clear); Bacteria Urine None Seen /hpf; Bilirubin Urine Negative (Negative); Blood Urine Negative (Negative); Color Urine Yellow (Yellow); Glucose Urine UA Negative (Negative); Ketones Urine Negative (Negative); Leukocyte Esterase Ur Negative LEU/UL (Negative); Need Manual Microscopic Reviewed; Nitrate Urine Negative (Negative); Protein Urine 2+ mg/dL (Negative); RBC Urine 0-2 /hpf (0-2); Specific Grav Ur 1.016 (1.001-1.035); Squamous Epithelial Cell Urine None seen /hpf (Few); WBC Urine 0-5 /hpf; pH Urine 6.5 (5.0-9.0)
[2023-08-07 13:46] LABS: Add Urine Microscopic? YES
[2023-08-07] MEDS: SODIUM CHLORIDE 0.9% IV 1,000 ML 999 ML IV CONT (13:50)
[2023-08-07 14:01] LABS: Influenza A QL RT-PCR Negative (Negative); Influenza B QL RT-PCR Negative (Negative); RSV RNA, RT-PCR Negative (Negative); SARS-CoV-2 RNA PCR Positive (Negative)
[2023-08-07] MEDS: dilTIAZem HCl INJ 25 MG/5 ML VIAL 10 MG IV PUSH (14:31)
[2023-08-07] MEDS: dilTIAZem 100 MG/100 ML 100 MG/100 ML BAG IV CONT (14:31)
[2023-08-07 16:11] LABS: NT Pro B Type Natriuretic Pept 9810 pg/mL (19.9-100)
--- NOTE | 2023-08-07 20:25 | PM.IMHP ---
H&P: HPI History of Present Illness Date/Time: 08/07/23 20:25 Chief Complaint: Fall Narrative: 88 y/o F presents here for evaluation post-ground level fall with PMH of Alzheimer's, HTN, mitral stenosis, aortic stenosis, JR, CKD S3, AFib, and HLD. Patient presented here from [facility] via EMS for unwitnessed ground level fall with unknown downtime. Patient was found by staff lying on her back in her room, ecchymosis to bilateral elbows, and alert. Patient is on Eliquis for AFib. Patient is wheelchair bound. Recently admitted here from 07/06/23-07/08/23 for altered mental status, poor p.o. intake. Found to have COVID without hypoxia, UTI, and pancytopenia. Baseline mentation is A/Ox1. Currently endorsing shortness of breath, nausea, vomiting, and right lower quadrant tenderness/discomfort. Denies chest pain, palpitations, dizziness, fever, or chills. Limited HPI due to Alzheimer's, information obtained through patient interview, chart review, and ED provider report. Initial VS at presentation: 97.9 F, HR 128, RR 24, 112/87, 96% on RA. ED workup showed mild leukocytosis with WBC of 11.6 (previously 5.0 on 07/23/2023), HGB 9.5, creatinine 0.9, total bilirubin 1.4, AST 42, BNP 9810, UA not suspicious for UTI. COVID+, however was also COVID+ on 07/06/23 - no active symptoms. Head CT showed no acute fractures or acute intracranial processes. XR of right elbow showed no infusion or osseous abnormality. C-spine CT showed moderate cervical spondylosis, moderate pulmonary edema and at least small bilateral pleural effusions, prominent atherosclerotic calcific lesions at great vessels arising from aortic arch and carotid bulbs that may be hemodynamically significant. Chest CTA showed no PE, pulmonary edema, moderate right and small left pleural effusions, marked cardiomegaly with additional signs a can be seen with right HF, severe body wall edema. Review of Systems Review of Systems: All systems reviewed & are unremarkable except as noted in HPI and below [facility] Past Medical History Medical History (Updated 08/07/23 @ 21:33 by Shelli Katz, YAIR) Alzheimer disease Anemia, chronic renal failure Aortic stenosis Atrial fibrillation On anticoagulation Benign essential HTN JR (generalized anxiety disorder) Heart failure due to valvular disease Hyperlipidemia Mitral stenosis Pancytopenia PFO (patent foramen ovale) Surgical History Surgical History H/O total hysterectomy S/P cholecystectomy Family History Family History Sibling Lung cancer Breast cancer Emphysema lung Social History Social History Social History: Smoking status: Never smoker Second hand tobacco smoke exposure: No Alcohol intake: never Substance use: never Substance use type: does not use Do You Feel Safe in your Home?: Yes Lack of Transportation: No Lack of Food: Never True Current Housing: I Have Housing Concerned About Future Housing: No Difficulty Paying Gas/Electric Bills: No Difficulty Paying for Meds: No Currently Unemployed: No Education: High School Diploma/GED Difficulty w/ Childcare or Family Care: No Living arrangements: alone Occupation/Education: retired Gender identity (if verbalized by the patient): Female Sexual Orientation (if Verbalized by the Patient): Straight or Heterosexual Spiritual care concerns: No Meds Home Medications and Allergies Home Medications Medication Instructions Recorded Confirmed Type sertraline 25 mg tablet 25 mg PO DAILY #30 tabs 05/07/23 07/14/23 Rx acetaminophen 500 mg tablet 1,000 mg PO BID 07/06/23 08/07/23 History apixaban 2.5 mg tablet (Eliquis) 2.5 mg PO BID 07/06/23 07/14/23 History atorvastatin 20 mg tablet 20 mg PO DAILY 07/06/23 07/14/23 History cyanocobalamin (vitamin B-12)
--- NOTE | 2023-08-07 21:16 | ADMGEN ---
This patient, Filomena Sams, was admitted to IMU Room 211-01 at 2039. Patient/family oriented to hospital policies and general routines including ID bracelet, bed and alarms, visiting hours, pain management, procedures, bathroom and other care routines, personal items, smoking policy, room service/diet, and visiting hours. Information on how to activate the Rapid Response Team has been discussed. Patient/Family are encouraged to report perceived risks to care and to ask questions if they do not understand what they are told or what they should do.
[2023-08-07] MEDS: ONDANSETRON INJ 4 MG/2 ML VIAL IV PUSH (22:07)
[2023-08-07] MEDS: APIXABAN 2.5 MG TABLET PO (22:07)
[2023-08-07] MEDS: CEFEPIME 2 GM/NS 50 ML 2 GM/50 ML BAG IVPB (22:07)
[2023-08-07] MEDS: IPRATROPIUM BR 0.02% INH SOLN 0.5 MG/2.5 ML VIAL INHALATION (22:08)
[2023-08-07 22:42] LABS: Lactic Acid Reflex 7.9 mmol/L (0.7-2.0)
--- NOTE | 2023-08-07 23:15 | PC.NURSE ---
[place] Intervention = SVI 85% FLUID RESPONSIVE
[2023-08-07] MEDS: VANCOMYCIN 1,250 MG/NS 250 ML 1,250 MG/250 ML BAG 166.67 MG IVPB (23:20)
[2023-08-08] VITALS (10 sets, daily range): BP systolic 107–135; BP diastolic 47–65; PULSE 69–90; RESP 20–24; TEMP 35.9–36.4; O2SAT 92–100
[2023-08-08 00:04] LABS: Lipase 65 U/L (23-300)
[2023-08-08] MEDS: LACTATED RINGERS 500 ML 250 ML IV CONT (00:12)
[2023-08-08] MEDS: FUROSEMIDE INJ 40 MG/4 ML VIAL 20 MG IV PUSH (00:55)
[2023-08-08 01:18] LABS: Reflex Lactic Acid Yes or No Add Lactic
[2023-08-08 02:21] LABS: Basophils Percent Auto 0.1 % (0.2-1.2); Hematocrit 29.9 % (37.0-47.0); Hemoglobin 9.3 g/dL (12.0-15.0); Immature Granulocyte Absolute 0.06 K/mm3 (0.00-0.031); Immature Granulocyte Percent A 0.7 % (0-0.5); Immature Platelet Fraction Pct 7.2 % (0.9-11.2); Lymphocytes Percent Auto 7.6 % (18.3-44.2); Mean Corpuscular HGB Conc 31.1 g/dl (32-36); Mean Corpuscular Hemoglobin 33.2 pg (26-34); Mean Corpuscular Volume 106.8 fl (80-100); Monocytes Percent Auto 11.4 % (2.6-8.5); Neutrophils Absolute Auto 7.4 K/mm3 (1.3-6.7); Neutrophils Percent Auto 80.2 % (45.5-73.1); Platelet Count Result 86 k/mm3 (150-375); Red Cell Distribution Width 17.2 % (11.5-14.5); White Blood Count 9.2 K/mm3 (4.5-10.0)
[2023-08-08 02:45] LABS: Lactic Acid Reflex 9.9 mmol/L (0.7-2.0)
[2023-08-08 02:46] LABS: Albumin Level 3.6 g/dL (3.5-5.1); Alkaline Phosphatase 110 U/L (38-126); Anion Gap 21 mmol/L (8-16); Aspartate Amino Transferase 188 U/L (14-36); Bilirubin,Total 2.2 mg/dL (0.2-1.3); Blood Urea Nitrogen 36 mg/dL (7-17); Calcium 8.8 mg/dL (8.4-10.2); Carbon Dioxide 7 mmol/L (22-30); Chloride 109 mmol/L (98-107); Estimated CRCL calculation 28 ml/min; Estimated Glomerular Filt Rate 52; Glucose 45 mg/dL (65-110); Potassium 5.4 mmol/L (3.4-5.0); Sodium 137 mmol/L (137-145)
[2023-08-08] MEDS: LEVALBUTEROL NEB 1.25 MG/3 ML INHALATION ×2 (02:48→08:17)
[2023-08-08] MEDS: IPRATROPIUM BR 0.02% INH SOLN 0.5 MG/2.5 ML VIAL INHALATION ×2 (02:48→08:17)
[2023-08-08 02:52] LABS: Glucose Point of Care 31 mg/dl (65-105)
[2023-08-08 03:04] LABS: Anisocytosis 1+ (NORMAL); Ovalocytes 1+ (NORMAL); Platelet Estimate Decreased (Adequate); Schistocytes Rare (NORMAL)
[2023-08-08 03:05] LABS: Crenated RBC 1+ (NORMAL); Tear Drop Cells 1+ (NORMAL)
[2023-08-08] MEDS: SODIUM CHLORIDE 0.9% IV 1,000 ML 999 ML IV CONT (03:09)
[2023-08-08] MEDS: DEXTROSE 50% 25 GM/50 ML SYRINGE 50 GM (03:11)
[2023-08-08 04:17] LABS: Alanine Aminotransferase 155 U/L (6-35)
[2023-08-08 04:33] LABS: Glucose Point of Care 165 mg/dl (65-105)
[2023-08-08 04:33] LABS: Glucose Point of Care 224 mg/dl (65-105)
[2023-08-08] MEDS: SODIUM BICARBONATE 8.4% 50 MEQ/50 ML SYRINGE 100 MEQ IV PUSH (04:35)
[2023-08-08] MEDS: SODIUM BICARBONATE 8.4% 100 MEQ in WATER, STERILE FOR INJECTION 1,000 ML 75 MEQ IV CONT (04:42)
[2023-08-08 07:44] LABS: Glucose Point of Care 231 mg/dl (65-105)
[2023-08-08 08:23] LABS: Alveolar/Arterial O2 Gradient 108.7 mmHg; Base Excess ABG -8.8 mEq/l (+/-2.0); Fractional Inspired Oxygen 32 %; HCO3 ABG 14.1 mEq/l (22.0-26.0); Oxygen Content ABG 15.9 %vol (16.0-22.0); Oxygen Saturation ABG 97.3 % (95.0-100.0); Oxyhemoglobin 95.4 % THb (90.0-100.0); PO2 ABG 92.7 mmHg (80.0-100.0); Total Hemoglobin 11.8 g/dL (12.0-18.0); pH ABG 7.406 (7.350-7.450)
[2023-08-08 08:30] LABS: Device NASAL CANNULA; Modified Allen's Test Pass; PCO2 ABG 22.9 mmHg (35.0-45.0); Site Drawn RIGHT RADIAL
--- NOTE | 2023-08-08 09:03 | PM.IMPN ---
Subjective Date/time seen: 08/08/23 09:03 Objective Data Vital Signs Vital Signs: Vital Signs - 24 hr 08/07/23 11:50 08/07/23 13:06 08/07/23 14:31 Temperature 36.3 C L Pulse Rate 145 H 147 H 128 H Respiratory Rate 26 H Blood Pressure 128/79 112/87 Pulse Oximetry 97 Oxygen Delivery Room Air Oxygen Flow Rate 08/07/23 16:30 08/07/23 13:46 08/07/23 14:46 Temperature Pulse Rate 117 H 115 H 102 H Respiratory Rate 21 H 24 H Blood Pressure 109/73 109/69 Pulse Oximetry 97 96 Oxygen Delivery Oxygen Flow Rate 08/07/23 16:33 08/07/23 16:48 08/07/23 17:46 Temperature 36.6 C Pulse Rate 102 H 92 86 Respiratory Rate 27 H 18 24 H Blood Pressure 96/58 L 100/71 Pulse Oximetry 94 97 Oxygen Delivery Oxygen Flow Rate 08/07/23 18:04 08/07/23 18:16 08/07/23 18:41 Temperature Pulse Rate 78 76 83 Respiratory Rate 23 H 32 H 23 H Blood Pressure 96/58 L Pulse Oximetry 97 Oxygen Delivery Oxygen Flow Rate 08/07/23 19:31 08/07/23 20:50 08/07/23 22:14 Temperature 36.4 C Pulse Rate 79 89 74 Respiratory Rate 26 H 22 H 22 H Blood Pressure 95/73 L 130/72 Pulse Oximetry 98 95 94 Oxygen Delivery Nasal Cannula Oxygen Flow Rate 3 08/07/23 22:05 08/07/23 22:18 08/07/23 23:25 Temperature 36.4 C L Pulse Rate 82 96 72 Respiratory Rate 21 H 22 H 22 H Blood Pressure 143/96 H Pulse Oximetry 95 Oxygen Delivery Oxygen Flow Rate 08/07/23 23:46 08/07/23 22:00 08/08/23 00:00 Temperature Pulse Rate 60 98 69 Respiratory Rate Blood Pressure 143/91 H Pulse Oximetry Oxygen Delivery Oxygen Flow Rate 08/08/23 02:00 08/08/23 02:49 08/08/23 03:51 Temperature 36.4 C Pulse Rate 72 83 87 Respiratory Rate 21 H 22 H Blood Pressure 135/47 L Pulse Oximetry 100 Oxygen Delivery Oxygen Flow Rate 08/08/23 04:00 08/08/23 04:00 08/08/23 06:00 Temperature Pulse Rate 73 69 84 Respiratory Rate 24 H Blood Pressure Pulse Oximetry 95 Oxygen Delivery Nasal Cannula Oxygen Flow Rate 3 08/08/23 08:00 08/08/23 08:17 08/08/23 08:18 Temperature 35.9 C L Pulse Rate 72 82 82 Respiratory Rate 22 H 20 20 Blood Pressure 107/65 Pulse Oximetry 98 97 Oxygen Delivery Nasal Cannula Oxygen Flow Rate 3 08/08/23 08:32 Temperature Pulse Rate 90 Respiratory Rate 20 Blood Pressure Pulse Oximetry Oxygen Delivery Oxygen Flow Rate Intake/Output Intake/Output: Intake & Output 08/05/23 08/06/23 08/07/23 08/08/23 23:59 23:59 23:59 23:59 Intake Total 1000 Output Total 100 200 Balance 900 -200 Meds/Results Medications: Active Medications Generic Name Dose Route Start Last Admin Trade Name Freq PRN Reason Stop Dose Admin Atropine Sulfate 1 - 2 drop 08/08/23 09:01 Atropine Sulfate 1% Ophth Soln 5 Ml Bottle SUBLINGUAL Q4H PRN Secretions Ipratropium [place] 0.5 mg 08/07/23 21:30 08/08/23 08:17 Ipratropium Br 0.02% Inh Soln 0.5 Mg/2.5 Ml Vial INHALATION 0.5 mg Q6HRT KRISTIN Administration Levalbuterol HCl 1.25 mg 08/08/23 02:00 08/08/23 08:17 Levalbuterol Neb 1.25 Mg/3 Ml INHALATION 1.25 mg Q6HRT KRISTIN Administration Morphine Sulfate 4 mg 08/08/23 09:02 Morphine Sulfate (*Crx) 4 Mg/Ml Inj IV PUSH 08/08/23 09:03 ONCE ONE Ondansetron HCl 4 mg 08/07/23 21:31 08/07/23 22:07 Ondansetron Inj 4 Mg/2 Ml Vial IV PUSH 4 mg Q6H PRN Administration Nausea And Vomiting Radiology Results: ITS Impressions Head CT 08/07/23 12:50 IMPRESSION: 1. No fracture or acute intracranial process. 2. Age-related changes including moderate diffuse volume loss and moderate scattered white matter hypoattenuation consistent with chronic small vessel ischemic disease. Elbow X-Ray 08/07/23 13:06 IMPRESSION: 1. No right elbow joint effusion or acute osseous abnormality. Cervical Spine CT 08/07/23 13:13 IMPRESSION: 1. Moderate cervical spondy
[2023-08-08] MEDS: MORPHINE SULFATE (*CRX) 4 MG/ML INJ IV PUSH (09:20)
--- NOTE | 2023-08-08 12:59 | PM.DS ---
DS: Admitting Diagnosis Discharge Date 08/08/23 Admitting Diagnosis Sepsis, pneumonia, altered mental status, fall, heart failure due to valvular disease, atrial fibrillation with RVR, benign essential hypertension, CKD stage 3 DS: Discharge Diagnosis Discharge Diagnosis (1) Comfort measures only status: Code(s): Z51.5 - Encounter for palliative care Status: Acute (2) Sepsis: Code(s): A41.9 - Sepsis, unspecified organism Status: Acute (3) Pneumonia: Qualifiers: Pneumonia type: due to unspecified organism Laterality: bilateral Lung location: upper lobe of lung Qualified Code(s): J18.9 - Pneumonia, unspecified organism Code(s): J18.9 - Pneumonia, unspecified organism Status: Acute (4) AMS (altered mental status): Qualifiers: Altered mental status type: disorientation Qualified Code(s): R41.0 - Disorientation, unspecified Code(s): R41.82 - Altered mental status, unspecified Status: Acute (5) Fall: Qualifiers: Encounter type: initial encounter Qualified Code(s): W19.XXXA - Unspecified fall, initial encounter Code(s): W19.XXXA - Unspecified fall, initial encounter Status: Acute (6) Heart failure due to valvular disease: Code(s): I50.9 - Heart failure, unspecified; I38 - Endocarditis, valve unspecified Status: Acute (7) Atrial fibrillation with rapid ventricular response: Code(s): I48.91 - Unspecified atrial fibrillation Status: Acute (8) Benign essential HTN: Code(s): I10 - Essential (primary) hypertension Status: Acute (9) CKD (chronic kidney disease) stage 3, GFR 30-59 ml/min: Code(s): N18.30 - Chronic kidney disease, stage 3 unspecified Status: Acute DS: Summary Hospital Course Hospital Course: This is an 88-year-old female patient who was admitted to the hospital after a fall at nursing facility. Patient found to be in sepsis with elevated lactic acid. Additionally, patient had recurrent hypoglycemia overnight and rise and lactic acid despite antibiotics. This morning patient very uncomfortable appearing. He is dyspneic on supplemental oxygen. Her mental status is altered. Daughter is at bedside and states that she does not want to see her mother suffer like this. I offered additional workup as there is some concern she may have ischemic bowel given level of discomfort and level of lactic acid rise. Daughter does not want any further workup or intervention. Another daughter is on the way from [place] and should be here in the next 1-2 hours. Hospice was consulted and patient received a dose of pain medication IV. Further care was made comfort based only. Hospice was consulted and patient was discharged from acute care and admitted general inpatient hospice. Status at Discharge Cognitive/behavioral status at discharge: Altered level of consciousness he, awake but very confused Functional status at discharge: bed bound Overall status at discharge: patient is not back to baseline Time Spent with Patient Time attestation: Total time spent providing and/or coordinating discharge services: 35 minutes Time spent: Greater than 30 minutes Exam Narrative: GENERAL: Extremely uncomfortable appearing supplemental oxygen in place HEAD: Normocephalic, atraumatic. ENT:? Mucous membranes tacky CHEST: Clear to auscultation.? Tachypnea labored respirations supplemental oxygen in place HEART: Regular rate and irregular rhythm. ?Weak peripheral pulses ABDOMEN: Soft, tender to palpation EXTREMITIES: Normal range of motion. No peripheral edema. SKIN: Cool dry pale NEURO: Altered LOC, moves all extremities purposefully PSYCH: Unable to assess due to altered LOC DS: Data Data Completed and Pending Completed studies during hospitalization: Cervical spine CT, head CT, elbow x-ray, chest CTA Labs on day of discharge: Labs from last 24 hours 08/08/23 08/08/23
== END 2023-08-08 11:55 | disposition hospice, inpatient (51) ==
LOC: ANHED 16:00 → ANHIMU 08-08 02:49
PROVIDERS: Nurse Practitioner; Student in an Organized Health Care Education/Training Program; Admitting Provider Internal Medicine; Emergency Provider Emergency Medicine; PCP Family Medicine; Visit Provider Internal Medicine
DX: A41.9 Sepsis, unspecified organism (principal); J18.9 Pneumonia, unspecified organism; U07.1 COVID-19; I13.0 Hypertensive heart and chronic kidney disease with heart failure and stage 1 through stage 4 chronic kidney disease, or unspecified chronic kidney disease; N18.9 Chronic kidney disease, unspecified; I50.9 Heart failure, unspecified; I48.91 Unspecified atrial fibrillation; S50.01XA Contusion of right elbow, initial encounter; S50.02XA Contusion of left elbow, initial encounter; W19.XXXA Unspecified fall, initial encounter; D63.1 Anemia in chronic kidney disease; G30.9 Alzheimer's disease, unspecified; F02.80 Dementia in other diseases classified elsewhere, unspecified severity, without behavioral disturbance, psychotic disturbance, mood disturbance, and anxiety; J81.1 Chronic pulmonary edema; J90 Pleural effusion, not elsewhere classified; I05.0 Rheumatic mitral stenosis; I35.0 Nonrheumatic aortic (valve) stenosis; Z99.3 Dependence on wheelchair; I70.0 Atherosclerosis of aorta; R94.31 Abnormal electrocardiogram [ECG] [EKG]; R10.31 Right lower quadrant pain; M47.812 Spondylosis without myelopathy or radiculopathy, cervical region; E78.5 Hyperlipidemia, unspecified; F41.1 Generalized anxiety disorder; Z79.1 Long term (current) use of non-steroidal anti-inflammatories (NSAID); Z79.01 Long term (current) use of anticoagulants; Z79.899 Other long term (current) drug therapy
CPT/HCPCS: 36415; 36600; 70450; 71275; 72125; 73080; 80053; 81001; 82550; 82805; 82948; 83605; 83690; 83880; 85025; 85055; 85610; 85730; 87040; 87637; 93005; 94640; 96365; 96366; 96375; 99285; A9270; G0378; J0692; J1940; J2270; J2405; J3370; J7030; J7120; Q9967

== ENCOUNTER 2023-08-08 12:05 | HOS | payer OTHER, MEDICARE, MEDICAID, SELFPAY ==
[2023-08-08 12:49] VITALS: O2SAT 92
[2023-08-08] MEDS: HYDROmorphone HCL/PF (*CRX) 50 MG in SODIUM CHLORIDE 0.9% IV 95 ML IV CONT (13:29)
[2023-08-08] MEDS: GLYCOPYRROLATE INJ (*SP) 0.2 MG/ML VIAL 0.1 MG IV PUSH (15:22)
[2023-08-08] MEDS: diazePAM INJ (*CRX) 10 MG/2 ML SYRINGE 5 MG IV PUSH (15:23)
--- NOTE | 2023-08-08 15:30 | PC.NURSE ---
This patient, Filomena Sams, was transferred to [facility] on 08/08/23 at 1531. Personal belongings sent with patient. Report given to Helena TIDWELL. Appropriate documentation sent with patient.
[2023-08-08 20:00] VITALS: O2SAT 92
[2023-08-09] MEDS: diazePAM INJ (*CRX) 10 MG/2 ML SYRINGE 5 MG IV PUSH (06:08)
--- NOTE | 2023-08-09 07:49 | PM.IMHP ---
H&P: HPI History of Present Illness Date/Time: 08/09/23 07:49 Chief Complaint: Uncontrolled dyspnea Narrative: 88 y/o female with hx of dementia was admitted to acute care 08/07/2023 due to pneumonia with sepsis and encephalopathy. She failed to improve in spite of broad spectrum antibiotics and supportive care. Due to her advanced age and underlying dementia, her daughters/POA opted for comfort care only with admission to inpatient hospice service 08/08 for symptom management. Since initiation of hydromorphone infusion she remained comfortable. Review of Systems Review of Systems: ROS unobtainable: Yes unobtainable due to medical condition [facility] Past Medical History Medical History Alzheimer disease Anemia, chronic renal failure Aortic stenosis Atrial fibrillation On anticoagulation Benign essential HTN JR (generalized anxiety disorder) Heart failure due to valvular disease Hyperlipidemia Mitral stenosis Pancytopenia PFO (patent foramen ovale) Surgical History Surgical History H/O total hysterectomy S/P cholecystectomy Family History Family History Sibling Lung cancer Breast cancer Emphysema lung Social History Social History Social History: Smoking status: Never smoker Second hand tobacco smoke exposure: No Alcohol intake: never Substance use: never Substance use type: does not use Do You Feel Safe in your Home?: Yes Lack of Transportation: No Lack of Food: Never True Current Housing: I Have Housing Concerned About Future Housing: No Difficulty Paying Gas/Electric Bills: No Difficulty Paying for Meds: No Currently Unemployed: No Education: High School Diploma/GED Difficulty w/ Childcare or Family Care: No Living arrangements: alone Occupation/Education: retired Gender identity (if verbalized by the patient): Female Sexual Orientation (if Verbalized by the Patient): Straight or Heterosexual Spiritual care concerns: No Meds Home Medications and Allergies Home Medications Medication Instructions Recorded Confirmed Type sertraline 25 mg tablet 25 mg PO DAILY #30 tabs 05/07/23 08/08/23 Rx acetaminophen 500 mg tablet 1,000 mg PO BID 07/06/23 08/08/23 History apixaban 2.5 mg tablet (Eliquis) 2.5 mg PO BID 07/06/23 08/08/23 History atorvastatin 20 mg tablet 20 mg PO HS 07/06/23 08/08/23 History diltiazem HCl 120 mg capsule,24 120 mg PO DAILY 07/06/23 08/08/23 History hr,extended release (Tiadylt ER) ferrous sulfate 325 mg (65 mg 65 mg PO DAILY 07/06/23 08/08/23 History iron) tablet (Iron (ferrous sulfate)) potassium chloride 10 mEq See Rx Instructions .Route 07/09/23 08/08/23 Rx tablet,extended release .COMPLEX #90 tabs megestrol 625 mg/5 mL (125 mg/mL) 5 ml PO DAILY 08/07/23 08/08/23 History oral suspension sodium chloride 1,000 mg soluble 1,000 mg PO DAILY 08/07/23 08/08/23 History tablet cyanocobalamin (vitamin B-12) 500 250 mcg PO DAILY 08/08/23 08/08/23 History mcg tablet peg 400-propylene glycol (PF) 0.4 1 - 2 drp EACH EYE BID 08/08/23 08/08/23 History %-0.3 % eye drops in a dropperette (Systane (PF)) Allergies Allergy/AdvReac Type Severity Reaction Status Date / Time No Known Allergies Allergy Mild Verified 07/06/23 23:23 Vital Signs Vital Signs - 24 hr 08/08/23 12:49 08/08/23 20:00 Pulse Oximetry 92 92 Oxygen Delivery Nasal Cannula Room Air Oxygen Flow Rate 3 Exam Narrative: Elderly female lying comfortably in hospital bed. Unresponsive to verbal or tactile stimuli. No with JVD to jaw. Chest with bilateral coarse BS and scattered crackles. Heart NL S1, S2, irregular. Soft DIANA RUSB. Extr no edema. Hands cool to touch and cyanotic. Abd BS hypoactive, soft. No mass. M
--- NOTE | 2023-08-09 15:53 | P.DN_ITS ---
Discharge Summary Date and Time Date of : 08/09/23 Time of : 08:28 Provider Pronounced By: Carlene Mix RN, Maryann Enriquez RN Probable Cause of Probable Cause of : Sepsis due to pneumonia Summary Hospital Course: Admitted to inpatient hospice service due to uncontrolled dyspnea. Medications titrated to comfort. Mrs. Sams peacefully with her daughters at bedside. Additional Data Confirmation of as documented by pronouncing clinician: Pupillary Reflex, Palpable Pulses, Response to Stimuli, Heart Tones and Breath Sounds Name of Provider Notified: Dr. Robertson Time Provider Notified: 08:53 Provider Requests Autopsy: No Family Requests Autopsy: No [employer] Tester Notified: Yes Date [facility] Notified of : 08/09/23 Time [facility] Notified of : 09:25
== END 2023-08-09 08:28 | disposition expired | DRG 951 ==
LOC: ANHIMU 12:11 → ANH3MEDSUR 15:39
PROVIDERS: Admitting Provider Internal Medicine; PCP Family Medicine; Visit Provider Internal Medicine
DX: Z51.5 Encounter for palliative care (principal); A41.9 Sepsis, unspecified organism; J18.9 Pneumonia, unspecified organism; G93.40 Encephalopathy, unspecified; I48.20 Chronic atrial fibrillation, unspecified; I11.0 Hypertensive heart disease with heart failure; I50.9 Heart failure, unspecified; G30.9 Alzheimer's disease, unspecified; F02.80 Dementia in other diseases classified elsewhere, unspecified severity, without behavioral disturbance, psychotic disturbance, mood disturbance, and anxiety
CPT/HCPCS: A9270; J1170; J1596; J3360